=== PATIENT | female | born 1950 | race Caucasian/White ===

== ENCOUNTER → 2017-06-23 | Outpatient (CLI) | payer MEDICARE, OTHER ==
[~2017-06-23] MED LIST: ARIMIDEX PO; ASCO500C14 PO; ASP81TEC PO; ATEN50TA PO; CHOL4PAC2 PO; IBAN150T5 PO; LOSA1TAB3 PO; METF-380 PO; OMEG1CAP51 PO; ROSU10TA12 PO; UBID10CA8 PO; VITAMIN B5 PO
--- NOTE | 2017-06-23 12:11 | Diagnostic Imaging Report ---
PROCEDURE: US Thyroid. TECHNIQUE: Multiple real-time grayscale images were obtained of the thyroid in various projections. INDICATION: Thyroid nodules The patient did undergo an ultrasound guided needle aspiration procedure of a nodule in the right lobe of the thyroid and in the isthmus on 02/26/2012. The results of the aspiration is not known to me. On this study the nodule in the right lobe of thyroid that was previously biopsied is again evident and does not appear to have changed significantly in size. This nodule now measures 1.0 x 1.2 x 0.8 CM. The nodule in the isthmus seen previously has increased in size and now measures 2.4 x 2.6 x 1.5 CM. The nodule was not measured on the prior exam but it appeared to measure roughly 1 CM in size. This nodule has now more of a complex appearance indicating it may be partially cystic. The left lobe of the thyroid is not included on the prior study. There are 2 solid nodules within the left lobe in the superior pole. There is a 1.9 x 0.7 x 1.5 CM nodule and in the inferior pole is a 2.0 x 1.8 x 2.0 CM nodule. These nodules seem to be predominantly solid. The thyroid gland itself is also enlarged with the right lobe measuring 5.5 x 2.3 x 2.0 cm, and on the left measuring 5.6 x 2.6 x 2.5 CM (normal gland size 4-5 x 2 x 2 CM or less). IMPRESSION: 1. There are multiple nodules involving both lobes of thyroid. The previously biopsied nodule in the right lobe does not appear to have changed significantly but the isthmic nodule has increased in size significantly. 2. The appearance of the thyroid gland is most likely secondary to a multinodular goiter. If there are previous studies available for comparison they would be helpful. If there are no previous exams and further imaging is desired, then a nuclear medicine thyroid scan should be obtained. Dictated by: Dictated on workstation # [id number]
== END ==
LOC: RAD 11:09
PROVIDERS: ATTEND Internal Medicine Endocrinology, Diabetes & Metabolism
DX: E04.2 Nontoxic multinodular goiter (principal)
CPT/HCPCS: 76536

== ENCOUNTER 2017-09-30 15:50 | Outpatient (CLI) | payer MEDICARE, OTHER | END 2017-09-30 16:10 | disposition home or self-care (01) | LOC: SLEEP 15:50 | PROVIDERS: ATTEND Nurse Practitioner Family | DX: G47.33 Obstructive sleep apnea (adult) (pediatric) (principal) ==

== ENCOUNTER → 2018-11-24 | Outpatient (CLI) | payer MEDICARE, OTHER ==
--- NOTE | 2018-11-24 18:31 | Diagnostic Imaging Report ---
EXAM: Ultrasound of the head and neck. INDICATION: Papillary carcinoma of thyroid. The previous thyroid ultrasound exam of 06/23/2017 noted that the thyroid gland was enlarged and that there were multiple nodules in both lobes. There was also a complex cystic nodule in the isthmus which had increased in size significantly since the previous exam in 2011. Reportedly, in the interval since the prior exam the patient has undergone a thyroidectomy. On this exam, there is no discrete solid mass in the thyroid bed to suggest residual or recurrent thyroid tissue. If clinical concern regarding underlying thyroid tissue persists, however, then a nuclear medicine I-131 scan would be recommended for further study. IMPRESSION: There is no residual thyroid tissue present. Recommendations as above. Dictated by: Dictated on workstation # [id number]
== END ==
LOC: RAD FS 14:05
DX: C73 Malignant neoplasm of thyroid gland (principal)
CPT/HCPCS: 76536

== ENCOUNTER → 2019-11-21 | Outpatient (CLI) | payer MEDICARE, OTHER | LOC: LAB FS 21:21 | DX: N39.0 Urinary tract infection, site not specified (principal) | CPT/HCPCS: 36415; 80170 ==

== ENCOUNTER 2019-11-27 13:53 | Outpatient (RCR) | payer MEDICARE, OTHER ==
[2019-11-21 12:40] VITALS: BP 151/91
--- NOTE | 2019-11-21 14:31 | NUR ---
GENTAMICIN PER PHARMACY PROTOCOL X 7 DAYS: [facility]D GENTAMICIN LABS: SCr 0.91, CrCl 68.4, ACTUAL BODY WEIGHT 102.7KG ASSESSMENT & PLAN: DOSED @ 550MG (7MG/KG) USING ADJUSTED BODY WEIGHT 79.406 KG @ 1430 ON 11/20; WILL HAVE LEVEL CHECKED @ 2130 ON 11/20 IN [facility] (6 HOURS AFTER DOSE)
[2019-11-21] MEDS: GENTAMICIN IV SCH (14:46)
[2019-11-21] MEDS: NS IV SCH (14:46)
--- NOTE | 2019-11-22 12:49 | NUR ---
GENTAMICIN DOSING RANDOM ~ 7 HR LEVEL 5.6 - CONTINUE CURRENT Q24H DOSING
[2019-11-22] MEDS: GENTAMICIN IV SCH (14:20)
[2019-11-22] MEDS: NS IV SCH (14:20)
[2019-11-22 15:25] VITALS: BP 164/89
[2019-11-23 14:00] VITALS: BP 149/89
[2019-11-23] MEDS: GENTAMICIN IV SCH (14:21)
[2019-11-23] MEDS: NS IV SCH (14:21)
[2019-11-24 14:00] VITALS: BP 166/92
[2019-11-24] MEDS: NS IV SCH (14:06)
[2019-11-24] MEDS: GENTAMICIN IV SCH (14:06)
[2019-11-25] MEDS: GENTAMICIN IV SCH (14:15)
[2019-11-25] MEDS: NS IV SCH (14:15)
[2019-11-25 14:50] VITALS: BP 137/75
[2019-11-25 15:15] VITALS: BP 137/75
[2019-11-26 14:05] VITALS: BP 154/84
[2019-11-26] MEDS: GENTAMICIN IV SCH (14:11)
[2019-11-26] MEDS: NS IV SCH (14:11)
--- NOTE | 2019-11-26 14:11 | NUR ---
MEDICATION START TIME WAS 1411.
--- NOTE | 2019-11-26 15:10 | NUR ---
MEDICATION FINISH TIME WAS 1508.
--- NOTE | 2019-11-26 15:11 | NUR ---
PATIENT DISCHARGED AT 1510 FROM [facility].
[~2019-11-27] VITALS: Ht 172.7 cm; Wt 102.7 kg
[2019-11-27] MEDS: GENTAMICIN IV SCH (14:21)
[2019-11-27] MEDS: NS IV SCH (14:21)
[2019-11-27 14:24] VITALS: BP 132/81
== END 2019-11-27 15:20 | disposition home or self-care (01) ==
LOC: SDC 13:53
PROVIDERS: ATTEND Nurse Practitioner Family
DX: N39.0 Urinary tract infection, site not specified (principal); B96.20 Unspecified Escherichia coli [E. coli] as the cause of diseases classified elsewhere
CPT/HCPCS: 36569; 76937; 82565; 96365; C1751; 36415

== ENCOUNTER 2022-08-26 06:05 | Outpatient (CLI) | payer MEDICARE, OTHER ==
[~2022-08-26] VITALS: Ht 172.7 cm; Wt 100.0 kg
[2022-08-26] MEDS ORDERED: ROSU10TA28 PO (13:36)
[2022-08-26] MEDS ORDERED: METF-478 PO (13:36)
[2022-08-26] MEDS ORDERED: LIOT5TAB10 PO (13:36)
[2022-08-26] MEDS ORDERED: ASPI-999 PO (13:36)
[2022-08-26] MEDS ORDERED: UBID100C7 PO (13:36)
[2022-08-26] MEDS ORDERED: ASCO-281 PO (13:36)
[2022-08-26] MEDS ORDERED: LOSA1TAB20 PO (13:36)
[2022-08-26] MEDS ORDERED: TRIM100T PO (13:36)
[2022-08-26] MEDS ORDERED: MAGN400T39 PO (13:40)
[2022-08-26] MEDS ORDERED: SEMA1PEN3 SQ (13:40)
[2022-08-26] MEDS ORDERED: INSU200I4 SQ (13:40)
[2022-08-26] MEDS ORDERED: CYAN-41 PO (13:40)
[2022-08-26] MEDS ORDERED: CRAN500T PO (13:40)
[2022-08-26] MEDS ORDERED: CARV25TA PO (13:40)
[2022-08-26] MEDS ORDERED: LEVO112C4 PO (13:40)
[2022-08-26] MEDS ORDERED: CHOL500044 PO (13:40)
== END 2022-08-26 13:45 ==
LOC: PREOP 06:05
PROVIDERS: ATTEND Internal Medicine
DX: Z01.818 Encounter for other preprocedural examination (principal); Z12.11 Encounter for screening for malignant neoplasm of colon

== ENCOUNTER 2023-03-15 12:54 | Outpatient (CLI) | payer MEDICARE, OTHER ==
[~2023-03-15 12:54] MED LIST changes: +ASCO-281 PO; +ASPI-999 PO; +CARV25TA PO; +CHOL500044 PO; +CRAN500T PO; +CYAN-41 PO; +INSU200I4 SQ; +LEVO112C4 PO; +LIOT5TAB10 PO; +LOSA1TAB20 PO; +MAGN400T39 PO; +METF-478 PO; +ROSU10TA28 PO; +SEMA1PEN3 SQ; +TRIM100T PO; +UBID100C7 PO
== END 2023-03-15 13:15 ==
LOC: CANPRECLI → SLEEP 12:54
PROVIDERS: ATTEND Otolaryngology Otolaryngology/Facial Plastic Surgery
DX: G47.33 Obstructive sleep apnea (adult) (pediatric) (principal); G47.36 Sleep related hypoventilation in conditions classified elsewhere
CPT/HCPCS: G0399